=== PATIENT | male | born 1970 | race Hispanic/Latino ===

== ENCOUNTER 2018-05-14 14:54 | Inpatient (IN) | payer MEDICAID ==
[2018-05-14 15:17] VITALS: BMI 23.8
[2018-05-14 15:42] LABS: BASO % 0.2 % (0.0-2.0); EOS # 0.1 K/uL (0.0-0.7); EOS % 1.8 % (0.0-4.0); HEMOGLOBIN 14.5 g/dL (12.0-18.0); LYMPH # 1.4 K/uL (1.0-4.3); MEAN CELL VOLUME 95.7 fL (80.0-94.0); MEAN CORPUSCULAR HEMOGLOBIN 33.4 pg (27.0-31.0); MEAN CORPUSCULAR HGB CONC 34.8 g/dL (33.0-37.0); MEAN PLATELET VOLUME 7.9 fL (7.2-11.7); MONO # 0.5 K/uL (0.0-0.8); NEUT # 2.9 K/uL (1.8-7.0); NRBC % 0.1 % (0.0-2.0); RBC 4.35 Mil/uL (4.40-5.90); RED CELL DISTRIBUTION WIDTH 13.3 % (11.5-14.5); WHITE BLOOD COUNT 4.8 K/uL (4.8-10.8)
[2018-05-14 15:47] LABS: SQUAMOUS EPITHIAL < 1 /hpf (0-5); URINE BILIRUBIN NEGATIVE (NEGATIVE); URINE BLOOD NEGATIVE (NEGATIVE); URINE CLARITY Clear (Clear); URINE COLOR Yellow (YELLOW); URINE GLUCOSE (UA) NORMAL (Normal); URINE LEUKOCYTE ESTERASE NEG Leu/uL (Negative); URINE PROTEIN NEGATIVE (NEGATIVE); URINE UROBILINOGEN NORMAL mg/dL (0.2-1.0)
[2018-05-14 15:58] LABS: ALB/GLOB RATIO 1.4 (1.0-2.1); ALBUMIN 5.3 g/dL (3.5-5.0); ALT/SGPT 139 U/L (21-72); AST/SGOT 156 U/L (17-59); BLOOD UREA NITROGEN 5 mg/dL (9-20); CALCIUM 10.1 mg/dl (8.6-10.4); GFR NON-AFRICAN AMERICAN > 60
[2018-05-14 16:05] LABS: BARBITURATES, UR NEGATIVE (NEGATIVE); BENZODIAZEPINES, UR NEGATIVE (NEGATIVE); OPIATES, UR NEGATIVE (NEGATIVE); PHENCYCLIDINE, UR NEGATIVE (NEGATIVE)
--- NOTE | 2018-05-14 17:07 | C.PDOC ---
History Of Present Illness 47 year old male presents to the ED for alcohol detoxification. Patient was prescreened for detox. Reports he drinks 12 bottles of beer per day and last drink was at 2300 last night. Denies any physical complaints. Denies any depress ion or SI/HI. Time Seen by Provider: 05/14/18 15:05 Chief Complaint (Nursing): Substance Abuse History Per: Patient History/Exam Limitations: no limitations Onset/Duration Of Symptoms: Days Suicide/Self Injury Attempted (Context): None Modifying Factor(s): Alcohol Associated Symptoms: denies: Depression, Suicidal Thoughts Past Medical History Reviewed: Historical Data, Nursing Documentation, Vital Signs Vital Signs: Last Vital Signs Temp 99.2 F 05/14/18 15:01 Pulse 73 05/14/18 15:01 Resp 20 05/14/18 15:01 BP 125/81 05/14/18 15:01 Pulse Ox 99 05/14/18 15:01 - Medical History PMH: HTN, Seizures Surgical History: No Surg Hx Family History: States: No Known Family Hx - Social History Hx Alcohol Use: Yes Hx Substance Use: No - Immunization History Hx Tetanus Toxoid Vaccination: No Hx Influenza Vaccination: No Hx Pneumococcal Vaccination: No Review Of Systems Except As Marked, All Systems Reviewed And Found Negative. Psych: Negative for: Depression, Suicidal ideation Physical Exam - Physical Exam Appears: Non-toxic Skin: Warm, Dry, No Rash Head: Normacephalic Eye(s): bilateral: Normal Inspection Oral Mucosa: Moist Neck: Normal ROM Chest: Symmetrical Cardiovascular: Rhythm Regular Respiratory: Normal Breath Sounds, No Rales, No Rhonchi, No Wheezing Gastrointestinal/Abdominal: Soft, No Tenderness Extremity: Normal ROM Neurological/Psych: Oriented x3, Normal Speech Gait: Steady ED Course And Treatment - Laboratory Results Result Diagrams: 05/14/18 15:38 05/14/18 15:38 O2 Sat by Pulse Oximetry: 99 (RA) Pulse Ox Interpretation: Normal Progress Note: Patient is medically clear. Disposition - Disposition Disposition: HOSPITALIZED Disposition Time: 16:30 Condition: STABLE - Clinical Impression Clinical Impression: Alcohol dependence - Scribe Statement The provider has reviewed the documentation as recorded by the Scribjody Santiago All medical record entries made by the Barringtonibe were at my direction and personally dictated by me. I have reviewed the chart and agree that the record accurately reflects my personal performance of the history, physical exam, medical decision making, and the department course for this patient. I have also personally directed, reviewed, and agree with the discharge instructions and disposition.
[2018-05-14] MEDS ORDERED: Aluminum Hydroxide/Magnesium Hydroxide Susp (30 mL) PO PRN (17:24)
--- NOTE | 2018-05-14 17:30 | PCM.BM ---
<Fab Prieto - Last Filed: 05/14/18 17:29> Treatment Plan Problems - Problems identified on initial assessmt potential for alcohol withdrawal Date Initiated: 05/14/18 Time Initiated: 17:30 Status: Active Treatment assets and liabiliti Patient Assests: adapts well, cognitively intact Patient Liabilities: substance abuse, medical problems - Milieu Protocol Maintain good personal hygiene: daily Encourage regular showers, daily Remind patient to perform daily oral care, daily Assist patient to perform ADL's Conduct patient checks and document Observation sheet: Q15 minutes Maintain personal safety: every shift Educate patient to report safety concerns to staff, every shift Monitor environment for contraband/sharps Medication safety: Monitor for expected outcome, potential side effects: every shift, Assess barriers to learning: every shift, Assess readiness for medication education: every shift <Patricia Leal - Last Filed: 05/15/18 11:56> - Diagnosis (1) Alcohol dependence Status: Acute Interventions: 05/15/18 11:55 * Assess 7x/week regarding severity of withdrawal * Educate regarding risks, benefits, side effects and alternatives of medications * Use Motivational Interviewing for abstinence * Use CBT for relapse prevention * Medication management for withdrawal symptoms * Encourage medication assisted treatment *
[2018-05-15] MEDS: Multiple Vitamins Tab PO SCH (09:49)
--- NOTE | 2018-05-15 11:54 | PCM.PSYCH ---
Initial Psychiatric Evaluation - Initial Psychiatric Evaluation Type of Admission: Voluntary Legal Status: Capacity History of Present Illness and Precipitating Events: The pt is seen, chart reviewed, case discussed. He is a a 47 year old Citizen Of [place] male who is with one child that is twenty years old. He lives in a home with his mother and [id number]. 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 He began drinking at 15 years old but it became a problem in the past 3 years. He drinks 12-15 bottles of beer a day and mixes hard liquor into them 3/7 days. He states that he begins drinking as soon as he wakes up and continues until he goes to sleep at night. His last drink was the night preceding admission. He has been in the rehabilitation [facility] once before following a DUI. It is the first time in a detoxification program. He has attended AA meetings before but has not taken any medication to decrease alcohol intake. Pt has had 5-6 seizures in his lifetime related to alcohol use. Pt also smokes more than 1 pack of cigarettes a day but denies any other substances. Pt denies depression but looks sullen and anxious. Past Medical History: Hypertension Surgical History: Psychiatric History: Denies Family History: Brother and father with alcohol use disorder Legal History: Denies Traumatic History: Denies Current Medications: Active Medications Generic Name Dose Route Start Last Admin Trade Name Freq PRN Reason Stop Dose Admin Al Hydrox/Mg Hydrox/Simethicone 30 ml 05/14/18 17:24 Maalox 30 Ml PO TID PRN Indigestion / Heartburn Clonidine HCl 0.1 mg 05/14/18 17:22 05/14/18 18:53 Catapres PO 0.1 mg Q4H PRN Administration Symptoms of alcohol withdrawl Folic Acid 1 mg 05/15/18 10:00 05/15/18 09:49 Folic Acid PO 1 mg DAILY TANISHA Administration Hydrochlorothiazide 25 mg 05/15/18 10:00 05/15/18 09:48 Hydrodiuril PO 25 mg DAILY TANISHA Administration Hydroxyzine HCl 25 mg 05/14/18 17:48 05/14/18 18:53 Atarax PO 25 mg TID PRN Administration Anxiety Levetiracetam 750 mg 05/15/18 10:00 05/15/18 10:05 Keppra PO 750 mg BID TANISHA Administration Loperamide HCl 2 mg 05/14/18 17:24 Imodium PO Q8 PRN Diarrhea Lorazepam 1 mg 05/14/18 17:22 05/14/18 18:53 Ativan PO 1 mg Q4H PRN Administration Symptoms of alcohol withdrawl Lorazepam 2 mg 05/15/18 09:00 05/15/18 09:49 Ativan PO 05/20/18 08:59 2 mg Q6H TANISHA Administration Taper Losartan Potassium 100 mg 05/15/18 10:00 05/15/18 09:48 Cozaar PO 100 mg DAILY TANISHA Administration Mirtazapine 15 mg 05/15/18 22:00 Remeron PO HS TANISHA Multivitamins 1 tab 05/15/18 10:00 05/15/18 09:49 Hexavitamin PO 1 tab DAILY TANISHA Administration Nicotine 1 patch 05/15/18 10:00 05/15/18 09:48 Nicoderm Cq TD 1 patch DAILY TANISHA Administration Ondansetron HCl 4 mg 05/14/18 17:24 05/14/18 18:53 Zofran Tab PO 4 mg Q8 PRN Administration Nausea/Vomiting Thiamine HCl 100 mg 05/15/18 10:00 05/15/18 09:49 Vitamin B1 Tab PO 100 mg DAILY TANISHA Administration Trazodone HCl 100 mg 05/14/18 17:49 05/14/18 18:54 Desyrel PO 100 mg HS PRN Administration Sleep Past Psychiatric History - Past Psychiatric History Previous Treatment History: None Pertinent Medical Hx (Current Medical&Sleep Prob, Allergies): Allergies Allergy/AdvReac Type Severity Reaction Status Date / Time No Known Allergies Allergy Verified 05/14/18 14:59 Levetiracetam [Levetiracetam ER] 750 mg PO BID 05/14/18 Losartan/Hydrochlorothiazide [Losartan-Hctz 100-25 mg Tab] 1 each PO DAILY 05/14/18 Review of Systems - Neurological Neurological: Tremor - Psychiatric Psychiatric: Abnormal Sleep Pattern, Anhedonia, Anxiety, Depression, Difficulty Concentrating, Mood Swings. absent: Hallucinations, Homicidal Ideation, Hopelessness, Irritability, Paranoia, Suicidal Ideation Mental Status Examination - Personal Presentation Personal Presentation: Looks older than stated age - Affect Affect: Constricted - Motor Activity Motor Activity: Calm - Reliability in Providing Information Reliability in Providing Information: Good - Speech Speech: Organized - Mood Mood: Depressed, Anxious - Formal Thought Process Formal Thought Process: No Impairment - Cognitive Functions Orientation: Person, Place, Situation, Time Sensorium: Alert Attention/Concentration: Easily distracted Estimate of Intelligence: Average Judgement: Intact, as evidence by: Insight regarding need for hospitalization Memory: Recent intact, as evidence by: Ability to recall events of the day, Remote intact, as evidenced by: Abilit to recall sig. life events - Risk Risk: Withdrawal, Diminished functioning - Strength & Assets Inventory Strength & Assets Inventory: Family support, Employment history, Cooperative - Limitations Limitations: Other DSM 5 DX - DSM 5 DSM 5 Diagnosis: Alcohol withdrawal Alcohol use d/o - severe Tobacco use d/o - severe r/o Anxiety d/o HTN Seizure d/o - Recommended/Plan of Treatment Treatment Recommendations and Plan of Treatment: Taper with ativan Keppra for seizures HCTZ for HTN Gabapentin for augmentation As needed medications All risks, benefits and alternatives of the meds discussed, and the pt agreed and understood. Attend groups and activities Supportive therapy and psychoeducation [place] for abstinence CBT for relapse prevention Encourage MAT Refer to rehab or IOP, and self-help groups Teach healthy lifestyle methods, i.e. diet, exercise, meditation Smoking cessation with [place] Nicotine patch if needed 34 min Projected ELOS: 4-5 days Prognosis: good w treatment - Smoking Cessation Smoking Cessation Initiated: Yes
[2018-05-16] MEDS: Multiple Vitamins Tab PO SCH (09:16)
--- NOTE | 2018-05-16 23:11 | PCM.PYCHPN ---
Psychiatric Progress Note - Psychiatric Progress Note Patient seen today, length of contact: 15 min Patient Chief Complaint: "I'm OK today" Problems Identified/Issues Discussed: The pt is seen, chart reviewed, case discussed with staff. The pt is compliant with medications and reports no side-effects. Symptoms are improving but needs more time to stabilize. After care discussed, support and psychoeducation given. Medication Change: Yes (detox changes daily) Medical Record Reviewed: Yes Mental Status Examination - Cognitive Function Orientation: Person, Place, Situation, Time Memory: Intact Attention: WNL Concentration: WNL Association: WNL Fund of Knowledge: WNL - Mood Mood: Depressed, Anxious - Affect Affect: Constricted - Speech Speech: Appropriate - Formal Thought Process Formal Thought Process: No Impairment - Suicidal Ideation Suicidal Ideation: No - Homicidal Ideation Homicidal Ideation: No Goal/Treatment Plan - Goal/Treatment Plan Need for Continued Stay: Discharge may exacerbated symptoms, Severe functional impairment Progress Toward Problem(s) and Goals/Treatment Plan: Taper with ativan Keppra for seizures HCTZ for HTN Gabapentin for augmentation As needed medications All risks, benefits and alternatives of the meds discussed, and the pt agreed and understood. Attend groups and activities Supportive therapy and psychoeducation [place] for abstinence CBT for relapse prevention Encourage MAT Refer to rehab or IOP, and self-help groups Teach healthy lifestyle methods, i.e. diet, exercise, meditation Smoking cessation with [place] Nicotine patch if needed
[2018-05-17] MEDS: Multiple Vitamins Tab PO SCH (09:17)
--- NOTE | 2018-05-17 18:28 | PCM.PYCHPN ---
Psychiatric Progress Note - Psychiatric Progress Note Patient seen today, length of contact: 15 min Patient Chief Complaint: "I'm so so" Problems Identified/Issues Discussed: The pt is seen, chart reviewed, case discussed with staff. Support given, CBT and MO used briefly No new symptoms reported, improving slowly and needs more time No SEs from medications, risks discussed. After care discussed Medication Change: Yes (detox changes daily) Medical Record Reviewed: Yes Mental Status Examination - Cognitive Function Orientation: Person, Place, Situation, Time Memory: Intact Attention: WNL Concentration: WNL Association: WNL Fund of Knowledge: WNL - Mood Mood: Depressed, Anxious - Affect Affect: Constricted - Speech Speech: Appropriate - Formal Thought Process Formal Thought Process: No Impairment - Suicidal Ideation Suicidal Ideation: No - Homicidal Ideation Homicidal Ideation: No Goal/Treatment Plan - Goal/Treatment Plan Need for Continued Stay: Discharge may exacerbated symptoms, Severe functional impairment Progress Toward Problem(s) and Goals/Treatment Plan: Taper with ativan Keppra for seizures HCTZ for HTN Gabapentin for augmentation As needed medications All risks, benefits and alternatives of the meds discussed, and the pt agreed and understood. Attend groups and activities Supportive therapy and psychoeducation [place] for abstinence CBT for relapse prevention Encourage MAT Refer to rehab or IOP, and self-help groups Teach healthy lifestyle methods, i.e. diet, exercise, meditation Smoking cessation with [place] Nicotine patch if needed
[2018-05-18 06:14] VITALS: RESP 20
--- NOTE | 2018-05-18 09:03 | PCM.PYCHDC ---
Mental Status Examination - Mental Status Examination Orientation: Person, Place, Situation, Time Memory: Intact Mood: Anxious Affect: Constricted Speech: Appropriate Attention: WNL Concentration: WNL Association: WNL Fund of Knowledge: WNL Formal Thought Process: No Impairment Suicidal Ideation: No Current Homicidal Ideation?: No Discharge Summary - Discharge Note Reason for Hospitalization: Alcohol detox Consultations:: List each consultation separately and include: 1. Reason for request. 2. Findings. 3. Follow-up Summary of Hospital Course include:: 1. Description of specific treatment plan utilized for patients during their course of treatmen. 2. Summarize the time- course for resolution of acute symptoms and/or regressed behaviors. 3. Describe issues identified and worked on during hospitalization. 4. Describe medication utilized. 5. Describe medical problems identified and treated. 6. Reassessment of suicide risk Summary of Hospital Course: On Admission: The pt is seen, chart reviewed, case discussed. He is a a 47 year old [place] male who is with one child that is twenty years old. He lives in a home with his mother and [id number]. 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 He began drinking at 15 years old but it became a problem in the past 3 years. He drinks 12-15 bottles of beer a day and mixes hard liquor into them 3/7 days. He states that he begins drinking as soon as he wakes up and continues until he goes to sleep at night. His last drink was the night preceding admission. He has been in the rehabilitation center [facility] once before following a DUI. It is the first time in a detoxification program. He has attended AA meetings before but has not taken any medication to decrease alcohol intake. Pt has had 5-6 seizures in his lifetime related to alcohol use. Pt also smokes more than 1 pack of cigarettes a day but denies any other substances. Pt denies depression but looks sullen and anxious. Past Medical History: Hypertension Surgical History: Psychiatric History: Denies Family History: Brother and father with alcohol use disorder Legal History: Denies Traumatic History: Denies Hospital course: The pt was admitted and started on treatment with psychotherapy, support, psychoeducation and medications. [place] and CBT used. The pt attended groups and activities, as well as milieu therapy. All the risks and benefits of medications are discussed and the patient understood and agreed. The pt improved with the treatments provided. After care discussed with the patient. He went to [facility] - Final Diagnosis (DSM 5) Condition upon Discharge: STABLE DSM 5: Alcohol withdrawal Alcohol use d/o - severe Tobacco use d/o - severe r/o Anxiety d/o HTN Seizure d/o Disposition: HOME/ ROUTINE Follow-up Treatment Plan: Continue below medications after discharge. Follow after care plan as discussed. Use relapse prevention skills Return to ER or call 911 if suicidal, homicidal or symptoms relapse. Stay away from stress, alcohol and drugs. See primary doctor regularly and get labs. Prescriptions/Medication Reconciliation: hydroCHLOROthiazide [Hydrodiuril] 25 mg PO DAILY #30 tab levETIRAcetam [Keppra] 750 mg PO BID #60 tab Losartan [Cozaar] 100 mg PO DAILY #30 tab Mirtazapine [Remeron] 15 mg PO HS #30 tab traZODone [Desyrel] 100 mg PO HS PRN #30 tab PRN Reason: Sleep
[2018-05-18] MEDS: Multiple Vitamins Tab PO SCH (09:29)
[2018-05-18 10:51] VITALS: BP 112/77; PULSE 89; TEMP 98.2; O2SAT 98
== END 2018-05-18 11:05 | disposition home or self-care (01) | DRG 772 ==
LOC: C.ER 14:54 → C.7D 17:06
PROVIDERS: ADMIT Psychiatry & Neurology Psychiatry; ATTEND Psychiatry & Neurology Psychiatry
PROC: HZ2ZZZZ Detoxification Services for Substance Abuse Treatment (ICD-10-PCS; principal; 2018-05-14)
PROC: HZ46ZZZ Group Counseling for Substance Abuse Treatment, Psychoeducation (ICD-10-PCS; 2018-05-14)
PROC: HZ59ZZZ Individual Psychotherapy for Substance Abuse Treatment, Supportive (ICD-10-PCS; 2018-05-14)
PROC: HZ80ZZZ Medication Management for Substance Abuse Treatment, Nicotine Replacement (ICD-10-PCS; 2018-05-14)
DX: F10.239 Alcohol dependence with withdrawal, unspecified (principal); I10 Essential (primary) hypertension; F17.210 Nicotine dependence, cigarettes, uncomplicated; G40.909 Epilepsy, unspecified, not intractable, without status epilepticus